=== PATIENT | female | born 1980 | race Asian ===

== ENCOUNTER 2018-07-18 22:25 | Inpatient (IN) | payer BC ==
[2018-07-18] MEDS ORDERED: ACETAMINOPHEN 1000 MG/100 ML VIAL (NON FORMULARY) IVPB ONE (22:41)
[2018-07-18] MEDS ORDERED: SODIUM CHLORIDE 0.9% 1000 ML INFUS.BAG IV ONE (22:41)
[2018-07-18] MEDS ORDERED: ACETAMINOPHEN INJECTION 100 ML IVPB ONE (22:57)
[2018-07-18 23:01] LABS: URINE APPEARANCE Clear; URINE BILIRUBIN Negative (NEGATIVE); URINE COLOR Yellow; URINE GLUCOSE (UA) Negative (NEGATIVE); URINE KETONE Negative (NEGATIVE); URINE NITRITE Negative (NEGATIVE); URINE PROTEIN Trace (NEGATIVE); URINE UROBILINOGEN 0.2 (0.2-1.0)
[2018-07-18 23:04] LABS: URINE LEUK ESTERASE 3+ (NEGATIVE)
[2018-07-18 23:06] LABS: HEMOGLOBIN 10.1 GM/dl (10.7-15.3); MCH 30.6 pg (25.7-33.7); MCHC 32.7 g/dl (32.0-36.0); MEAN CELL VOLUME 93.6 fl (80-96); MEAN PLT VOLUME 8.1 fl (7.5-11.1); PLATELET COUNT 321 K/MM3 (134-434); RBC 3.32 M/mm3 (3.60-5.2); RDW 13.1 % (11.6-15.6); WHITE BLOOD COUNT 21.9 K/mm3 (4.0-10.8)
[2018-07-18 23:21] LABS: ALBUMIN 2.6 g/dl (3.5-5.0); ALK PHOS 122 U/L (32-92); ANION GAP 10 MMOL/L (8-16); BILIRUBIN,TOTAL 0.5 mg/dl (0.2-1.0); BLOOD UREA NITROGEN 6 mg/dl (7-18); CALCIUM 8.2 mg/dl (8.4-10.2); CHLORIDE 103 mmol/L (98-107); CO2 18 mmol/L (22-28); CREATININE < 0.6 mg/dl (0.6-1.3); GLUCOSE,RANDOM 108 mg/dl (74-106); POTASSIUM 3.6 mmol/L (3.5-5.1); SGOT/AST 44 U/L (10-42); SGPT/ALT 24 U/L (10-40); SODIUM 131 mmol/L (136-145); TOT PROT 6.2 g/dl (6.4-8.3)
[2018-07-18 23:24] LABS: EPI CELLS FEW /HPF; URINE BACTERIA MODERATE /hpf (NEGATIVE); URINE WBC MANY (0-5)
[2018-07-18 23:29] LABS: ANISOCYTOSIS 1+; PLATELET ESTIMATE ADEQUATE
[2018-07-18] MEDS ORDERED: CEFTRIAXONE 1 GM in DEXTROSE 5%-WATER - 100 ML IVPB ONE (23:35)
[2018-07-18] MEDS ORDERED: cefTRIAXone SODIUM 1 GM VIAL ONE (23:39)
--- NOTE | 2018-07-18 23:52 | PDOC ---
History of Present Illness - General Chief Complaint: Urinary Problem Stated Complaint: KIDNEY INFECTION Time Seen by Provider: 07/18/18 22:37 - History of Present Illness Initial Comments: 07/18/18 23:45 38 years old past medical history 8 days headache Ni during delivery diagnosed with UTI status post Ni catheterization treated initially with Bactrim sensitivities from urgent care showed resistance and patient was changed to Macrobid initially was feeling better but today began developing severe right flank pain associated with fevers Tmax 102 and some chills. Pain is moderate to severe persistent concent does not wax and wane is located in on her right flank and right side of her abdomen. No nausea no vomiting patient tolerated fluids Past History - Past Medical History Allergies/Adverse Reactions: Allergies Allergy/AdvReac Type Severity Reaction Status Date / Time No Known Allergies Allergy Unverified 07/18/18 22:30 Home Medications: Ambulatory Orders Ibuprofen 600 mg PO QID PRN 07/18/18 Nitrofurantoin Macrocrystal [Macrodantin] 100 mg PO BID 07/18/18 COPD: No Other medical history: RECENT CHILDBIRTH/UTI - Suicide/Smoking/Psychosocial Hx Smoking History: Never smoked Review of Systems - Review of Systems Comments:: 07/18/18 23:45 ROS: A complete review of 10 out of 10 review of systems is taken and is negative apart from what is previously mentioned below and in the HPI. *Physical Exam - Vital Signs Last Vital Signs Temp Pulse Resp BP Pulse Ox 100.1 F H 115 H 16 104/69 98 07/18/18 22:32 07/18/18 22:32 07/18/18 22:32 07/18/18 22:32 07/18/18 22:32 - Physical Exam Comments: 07/18/18 23:45 Vitals: Triage Vital signs reviewed General Appearance: no acute distress, well nourished well developed, Head: Atraumatic, Neck: Supple;No Nucal rigidity Chest Wall: Nontender Cardiac: Tachycardic, no murmurs, no rubs, no gallops, Lungs: Clear to auscultation bilateral, good air movement bilaterally, Abdomen: Soft, non distended, normal bowel sounds, non tender to palpation moderate right CVA tenderness to palpation Extremities: Full range of motion to all extremities, no cyanosis, clubbing, or edema Skin: Warm and dry, no rashes or lesions, no rash, no petechiae Psych: normal mood, normal affect ED Treatment Course - LABORATORY CBC & Chemistry Diagram: 07/18/18 22:50 07/18/18 22:50 - ADDITIONAL ORDERS Additional order review: Laboratory Results 07/18/18 07/18/18 07/18/18 22:50 22:50 22:50 Sodium 131 L Potassium 3.6 Chloride 103 Carbon Dioxide 18 L Anion Gap 10 BUN 6 L Creatinine < 0.6 L Creat Clearance w eGFR > 60 Random Glucose 108 H Calcium 8.2 L Total Bilirubin 0.5 AST 44 H ALT 24 Alkaline Phosphatase 122 H Total Protein 6.2 L Albumin 2.6 L Urine Color Yellow Urine Appearance Clear Urine pH 6.0 Ur Specific [place] <= 1.005 Urine Protein Trace Urine Glucose (UA) Negative Urine Ketones Negative Urine Blood 2+ H Urine Nitrite Negative Urine Bilirubin Negative Urine Urobilinogen 0.2 Ur Leukocyte Esterase 3+ H Urine RBC 5-10 Urine WBC Many Ur Epithelial Cells Few Urine Bacteria Moderate Urine HCG, Qual Negative 07/18/18 22:50 RBC 3.32 L MCV 93.6 MCHC 32.7 RDW 13.1 MPV 8.1 Neutrophils % No Result Required. Lymphocytes % No Result Required. - RADIOLOGY Radiology Studies Ordered: Category Date Time Status ABDOMEN & PELVIS CT W/O CONTR [CT] Stat CT Scan 07/18/18 23:01 Ordered - Medications Given in the ED: ED Medications Discontinued Medications Generic Name Dose Route Start Last Admin Trade Name Freq PRN Reason Stop Dose Admin Acetaminophen 1,000 mg 07/18/18 22:41 07/18/18 22:57 Ofirmev Injection - IVPB 07/18/18 22:42 1,000 mg ONCE ONE Administration Sodium Chloride 1,000 ml 07/18/18 22:41 07/18/18 22:56 Normal Saline - IV 07/18/18 22:42 1,000 ml ONCE ONE Administration Medical Decision Making - Medical Decision Making 07/18/18 23:58 History examination consistent with pyelonephritis given flank pain CT ordered No obvious evidence of stone interpreted by me. Given fever and tachycardia white blood cell count of 21 we'll admit to hospital for IV antibiotics and further management given the patient has failed outpatient therapy Findings discussed with patient. *DC/Admit/Observation/Transfer Diagnosis at time of Disposition: Pyelonephritis - Discharge Dispostion Condition at time of disposition: Stable Decision to Admit order: Yes - Referrals - Patient Instructions - Post Discharge Activity
[2018-07-18 23:58] LABS: VENOUS PC02 30.7 mmHg (38-52); VENOUS PH 7.41 (7.32-7.42); VENOUS PO2 45.4 mmHg (28-48)
[2018-07-19 00:47] VITALS: BMI 23.8
--- NOTE | 2018-07-19 00:55 | HP ---
CHIEF COMPLAINT: Right flank pain and fever PCP: none HISTORY OF PRESENT ILLNESS: This is a 38 year old female who is 8 days who presented to the ED with fever and right flank pain x 1 day. Pt is 8 days . She had a allison catheter placed during delivery. She was diagnosed with UTI by [facility] in [facility] and started on bactrim. She initially felt better, but she received a TC that it was resistant to bactrim and was prescribed macrobid. ER course was notable for: (1) WBC 21.9, lactic acid 2.7, temp 100.1 (2) sodium 131 (3) u/a c/w UTI Recent Travel: pt denies PAST MEDICAL HISTORY: hypothyroid, no longer on meds; prolactinoma tx with cabergoline PAST SURGICAL HISTORY: fibroidectomy Social History: Smoking: pt denies Alcohol: pt denies Drugs: pt denies Family History: mother, father and brother all alive and well with no PMH Allergies No Known Allergies Allergy (Unverified 07/18/18 22:30) HOME MEDICATIONS: 3 Medication Instructions Recorded Ibuprofen 600 mg PO QID PRN 07/18/18 Nitrofurantoin Macrocrystal 100 mg PO BID 07/18/18 [Macrodantin] REVIEW OF SYSTEMS CONSTITUTIONAL: Present: fever, chills Absent: diaphoresis, generalized weakness, malaise, loss of appetite, weight change HEENT: Absent: rhinorrhea, nasal congestion, throat pain, throat swelling, difficulty swallowing, mouth swelling, ear pain, eye pain, visual changes CARDIOVASCULAR: Absent: chest pain, syncope, palpitations, irregular heart rate, lightheadedness , peripheral edema RESPIRATORY: Absent: cough, shortness of breath, dyspnea with exertion, orthopnea, wheezing, stridor, hemoptysis GASTROINTESTINAL: Absent: abdominal pain, abdominal distension, nausea, vomiting, diarrhea, constipation, melena, hematochezia GENITOURINARY: Present: flank pain Absent: dysuria, frequency, urgency, hesitancy, hematuria, genital pain MUSCULOSKELETAL: Absent: myalgia, arthralgia, joint swelling, back pain, neck pain SKIN: Absent: rash, itching, pallor HEMATOLOGIC/IMMUNOLOGIC: Absent: easy bleeding, easy bruising, lymphadenopathy, frequent infections ENDOCRINE: Absent: unexplained weight gain, unexplained weight loss, heat intolerance, cold intolerance NEUROLOGIC: Absent: headache, focal weakness or paresthesias, dizziness, unsteady gait, seizure, mental status changes, bladder or bowel incontinence PSYCHIATRIC: Absent: anxiety, depression, suicidal or homicidal ideation, hallucinations. PHYSICAL EXAMINATION Vital Signs - 24 hr 3 07/18/18 07/19/18 07/19/18 22:32 00:16 00:17 Temperature 100.1 F H 98.9 F 98.4 F Pulse Rate 115 H 113 H Pulse Rate [ 98 H Radial] Respiratory 16 16 19 Rate Blood Pressure 104/69 102/59 L Blood Pressure 98/56 L [Arm] O2 Sat by Pulse 98 98 98 Oximetry (%) GENERAL: Awake, alert, and fully oriented, in no acute distress. HEAD: Normal with no signs of trauma. EYES: Pupils equal, round and reactive to light, extraocular movements intact, sclera anicteric, conjunctiva clear. No lid lag. EARS, NOSE, THROAT: Ears normal, nares patent, oropharynx clear without exudates. Moist mucous membranes. NECK: Normal range of motion, supple without lymphadenopathy, JVD, or masses. LUNGS: Breath sounds equal, clear to auscultation bilaterally. No wheezes, and no crackles. No accessory muscle use. HEART: Regular rate and rhythm, normal S1 and S2 without murmur, rub or gallop. ABDOMEN: Soft, nontender, not distended, normoactive bowel sounds, no guarding, no rebound, no masses. No hepatomegaly or splenomegaly. MUSCULOSKELETAL: Normal range of motion at all joints. No bony deformities or tenderness. + R CVA tenderness. UPPER EXTREMITIES: 2+ pulses, warm, well-perfused. No cyanosis. No clubbing. No peripheral edema. LOWER EXTREMITIES: 2+ pulses, warm, well-perfused. No calf tenderness. No peripheral edema. NEUROLOGICAL: Cranial nerves II-XII intact. Normal speech. Normal gait. PSYCHIATRIC: Cooperative. Good eye contact. Appropriate mood and affect. SKIN: Warm, dry, normal turgor, no rashes or lesions noted, normal capillary refill. Laboratory Results - last 24 hr 3 07/18/18 07/18/18 07/18/18 22:50 22:50 22:50 WBC 21.9 H RBC 3.32 L Hgb 10.1 L Hct 31.0 L MCV 93.6 MCH 30.6 MCHC 32.7 RDW 13.1 Plt Count 321 MPV 8.1 Absolute Neuts (auto) 19.6 Neutrophils % No Result Required. Neutrophils % (Manual) 85.0 H Band Neutrophils % 7.0 Lymphocytes % No Result Required. Lymphocytes % (Manual) 4.0 L Monocytes % (Manual) 4 Platelet Estimate Adequate Platelet Comment Few large plts. Anisocytosis 1+ [place] Cells 2+ VBG pH 7.41 POC VBG pCO2 30.7 L POC VBG pO2 45.4 Mixed VBG HCO3 19.1 Sodium Potassium Chloride Carbon Dioxide Anion Gap BUN Creatinine Creat Clearance w eGFR Random Glucose Lactic Acid Calcium Total Bilirubin AST ALT Alkaline Phosphatase Total Protein Albumin Beta HCG, Quant Urine Color Yellow Urine Appearance Clear Urine pH 6.0 Ur Specific [place] <= 1.005 Urine Protein Trace Urine Glucose (UA) Negative Urine Ketones Negative Urine Blood 2+ H Urine Nitrite Negative Urine Bilirubin Negative Urine Urobilinogen 0.2 Ur Leukocyte Esterase 3+ H Urine RBC 5-10 Urine WBC Many Ur Epithelial Cells Few Urine Bacteria Moderate Urine HCG, Qual 3 07/18/18 07/18/18 07/18/18 22:50 22:50 22:50 WBC RBC Hgb Hct MCV MCH MCHC RDW Plt Count MPV Absolute Neuts (auto) Neutrophils % Neutrophils % (Manual) Band Neutrophils % Lymphocytes % Lymphocytes % (Manual) Monocytes % (Manual) Platelet Estimate Platelet Comment Anisocytosis [place] Cells VBG pH POC VBG pCO2 POC VBG pO2 Mixed VBG HCO3 Sodium 131 L Potassium 3.6 Chloride 103 Carbon Dioxide 18 L Anion Gap 10 BUN 6 L Creatinine < 0.6 L Creat Clearance w eGFR > 60 Random Glucose 108 H Lactic Acid 2.7 H* Calcium 8.2 L Total Bilirubin 0.5 AST 44 H ALT 24 Alkaline Phosphatase 122 H Total Protein 6.2 L Albumin 2.6 L Beta HCG, Quant 89.9 Urine Color Urine Appearance Urine pH Ur Specific [place] Urine Protein Urine Glucose (UA) Urine Ketones Urine Blood Urine Nitrite Urine Bilirubin Urine Urobilinogen Ur Leukocyte Esterase Urine RBC Urine WBC Ur Epithelial Cells Urine Bacteria Urine HCG, Qual Negative Radiology Reports CT abd/pelvis: report pending ASSESSMENT/PLAN: 38yF with PMH hypothyroid and prolactinoma presented to the ED with fever and flank pain. sepsis secondary to Pyelonephritis - tx with ceftriaxone 1 g in ED, - failed outpatient treatment, admit for IV antibiotics - add vanco 1g as patient recently had FC placement during delivery - ID consult anemia - likely secondary to blood loss r/t recent vaginal delivery - start iron BID with meals DVT PPX - heparin 5000u BID FEN - NS @ 100cc/hr - BMP in AM - Regular diet as tolerated Dispo: pt currently requires inpatient management of her emergent condition. Visit type - Emergency Visit Emergency Visit: Yes ED Registration Date: 07/18/18 Care time: The patient presented to the Emergency Department on the above date and was hospitalized for further evaluation of their emergent condition. - New Patient This patient is new to me today: Yes Date on this admission: 07/19/18 - Critical Care Critical Care patient: No Hospitalist Screening - Colonoscopy Questionnaire Colonoscopy Questionnaire: Colonoscopy Questionnaire - Patient: 50 - 75 years old and never had a screening colonoscopy: No History of colon or rectal polyps, or CA: No History of IBD, Crohn's disease or UC: No History of abdominal radiation therapy as a child: No - Relative: 1 with colon or rectal CA, or polyps at age 60 or younger: No Colon or rectal CA diagnosed at age 45 or younger: No Multiple relatives with colon or rectal CA: No - Outcome: Screening Result: Negative Screen
[2018-07-19] MEDS ORDERED: SODIUM CHLORIDE 1,000 ML IV SCH (01:00)
[2018-07-19] MEDS ORDERED: VANCOMYCIN 1 GRAM (PRE-DOCKED) 1,000 MG/250 ML BAG IVPB ONE (01:25)
--- NOTE | 2018-07-19 07:59 | PN ---
Physical Exam: SUBJECTIVE: Patient seen and examined, reports feelings right flank pain, denies any tactile fevers. OBJECTIVE: Patient is a 38 y/o female with a past medical history of hypothyroid (no meds), prolactinoma (tx with cabergoline, patient is 8 days post NVD., patient was admitted for pyelonephritis Vital Signs Period Temp Pulse Resp BP Sys/Dillon Pulse Ox Last 24 Hr 98.3 F-100.1 F 91-115 16-19 90-104/51-69 98-100 low 80s intermittently over GENERAL: The patient is awake, alert, and fully oriented, in no acute distress. HEAD: Normal with no signs of trauma. EYES: PERRL, extraocular movements intact, sclera anicteric, conjunctiva clear. No ptosis. ENT: Ears normal, nares patent, oropharynx clear without exudates, moist mucous membranes. NECK: Trachea midline, full range of motion, supple. LUNGS: Breath sounds equal, clear to auscultation bilaterally, no wheezes, no crackles, no accessory muscle use. HEART: Regular rate and rhythm, S1, S2 without murmur, rub or gallop. ABDOMEN: Soft, right CVA tendernessnontender, nondistended, normoactive bowel sounds, no guarding, no rebound, no hepatosplenomegaly, no masses. EXTREMITIES: 2+ pulses, warm, well-perfused, no edema. NEUROLOGICAL: Cranial nerves II through XII grossly intact. Normal speech, gait not observed. PSYCH: Normal mood, normal affect. SKIN: Warm, dry, normal turgor, no rashes or lesions noted Laboratory Results - last 24 hr CBC WBC 23.9 K/mm3 (4.0-10.8) H 07/19/18 08:30 RBC 3.16 M/mm3 (3.60-5.2) L 07/19/18 08:30 Hgb 9.6 GM/dl (10.7-15.3) L 07/19/18 08:30 Hct 29.9 % (32.4-45.2) L 07/19/18 08:30 MCV 94.5 fl (80-96) 07/19/18 08:30 MCH 30.4 pg (25.7-33.7) 07/19/18 08:30 MCHC 32.2 g/dl (32.0-36.0) 07/19/18 08:30 RDW 13.4 % (11.6-15.6) 07/19/18 08:30 Plt Count 294 K/MM3 (134-434) 07/19/18 08:30 MPV 7.6 fl (7.5-11.1) 07/19/18 08:30 Absolute Neuts (auto) 21.8 K/mm3 07/19/18 08:30 Neutrophils % 90.8 % (42.8-82.8) H 07/19/18 08:30 Neutrophils % (Manual) 85.0 % (42.8-82.8) H 07/18/18 22:50 Band Neutrophils % 7.0 % (0-10) 07/18/18 22:50 Lymphocytes % 4.3 % (8-40) L 07/19/18 08:30 Lymphocytes % (Manual) 4.0 % (8-40) L 07/18/18 22:50 Monocytes % 4.7 % (3.8-10.2) 07/19/18 08:30 Monocytes % (Manual) 4 % (3.8-10.2) 07/18/18 22:50 Eosinophils % 0.1 % (0-4.5) 07/19/18 08:30 Basophils % 0.1 % (0-2.0) 07/19/18 08:30 Platelet Estimate Adequate 07/18/18 22:50 Platelet Comment Few large plts. 07/18/18 22:50 Anisocytosis 1+ 07/18/18 22:50 Vidal Cells 2+ 07/18/18 22:50 CMP Sodium 135 mmol/L (136-145) L 07/19/18 08:30 Potassium 3.2 mmol/L (3.5-5.1) L 07/19/18 08:30 Chloride 110 mmol/L (98-107) H 07/19/18 08:30 Carbon Dioxide 20 mmol/L (22-28) L 07/19/18 08:30 Anion Gap 5 MMOL/L (8-16) L 07/19/18 08:30 BUN 5 mg/dl (7-18) L 07/19/18 08:30 Creatinine < 0.6 mg/dl (0.6-1.3) L 07/19/18 08:30 Creat Clearance w eGFR > 60 (>60) 07/19/18 08:30 Random Glucose 93 mg/dl (74-106) 07/19/18 08:30 Lactic Acid 0.7 mmol/L (0.4-2.0) 07/19/18 00:55 Calcium 7.7 mg/dl (8.4-10.2) L 07/19/18 08:30 Phosphorus 2.6 mg/dl (2.5-4.6) 07/19/18 08:30 Magnesium 1.8 mg/dL (1.8-2.4) 07/19/18 08:30 Total Bilirubin 0.5 mg/dl (0.2-1.0) 07/18/18 22:50 AST 44 U/L (10-42) H 07/18/18 22:50 ALT 24 U/L (10-40) 07/18/18 22:50 Alkaline Phosphatase 122 U/L (32-92) H 07/18/18 22:50 Total Protein 6.2 g/dl (6.4-8.3) L 07/18/18 22:50 Albumin 2.6 g/dl (3.5-5.0) L 07/18/18 22:50 Beta HCG, Quant 89.9 mIU/ml 07/18/18 22:50 Active Medications Generic Name Dose Route Start Last Admin Trade Name Freq PRN Reason Stop Dose Admin Ferrous Sulfate 325 mg 07/19/18 08:00 Feosol - PO BIDWM [facility] Heparin Sodium (Porcine) 5,000 unit 07/19/18 10:00 Heparin - SQ BID [facility] Sodium Chloride 1,000 mls @ 100 mls/hr 07/19/18 01:00 07/19/18 01:29 Normal Saline - IV 100 mls/hr ASDIR [facility] Administration ASSESSMENT/PLAN: 1) sepsis secondary to Pyelonephritis - microbiology report btained from [facility] urine culture completed on 2017 positive Escherichia coligreater than 100,000 sensitive to Rocephin copy of report, placed in paper chart - will continue with Ceftriaxone 2 g IV daily - Trend WBC and fever curve - dr. Paula infectious disease physician consulted and following 2) hematology normocytic anemia - Repeat hemoglobin this a.m. 9.6, patient is status post vaginal delivery and hemoglobin likely secondary to dilution receiving IV fluids, close monitoring. - continue iron supplementatio repeat hemoglobin in a.m. DVT PPX - heparin 5000u BID FEN - NS w/20meq kci @ 100cc/hr - BMP in AM - Regular diet as tolerated Dispo: pt currently requires inpatient management of her emergent condition. Visit type - Emergency Visit Emergency Visit: Yes ED Registration Date: 07/18/18 Care time: The patient presented to the Emergency Department on the above date and was hospitalized for further evaluation of their emergent condition. - New Patient This patient is new to me today: Yes Date on this admission: 07/19/18 - Critical Care Critical Care patient: No - Discharge Referral Referred to [facility] Med P.C.: No
[2018-07-19] MEDS ORDERED: ACETAMINOPHEN 1000 MG/100 ML VIAL (NON FORMULARY) IVPB ONE (08:30)
[2018-07-19 08:45] LABS: BASO % 0.1 % (0-2.0); EOS % 0.1 % (0-4.5); HEMATOCRIT 29.9 % (32.4-45.2); HEMOGLOBIN 9.6 GM/dl (10.7-15.3); LYMPH % 4.3 % (8-40); MCH 30.4 pg (25.7-33.7); MCHC 32.2 g/dl (32.0-36.0); MEAN CELL VOLUME 94.5 fl (80-96); MEAN PLT VOLUME 7.6 fl (7.5-11.1); MONO % 4.7 % (3.8-10.2); NEUT % 90.8 % (42.8-82.8); PLATELET COUNT 294 K/MM3 (134-434); RBC 3.16 M/mm3 (3.60-5.2); RDW 13.4 % (11.6-15.6); WHITE BLOOD COUNT 23.9 K/mm3 (4.0-10.8)
[2018-07-19] MEDS: FERROUS SO4 325 MG TABLET (FP) PO SCH ×2 (08:52→17:30)
[2018-07-19 09:02] LABS: ANION GAP 5 MMOL/L (8-16); BLOOD UREA NITROGEN 5 mg/dl (7-18); CALCIUM 7.7 mg/dl (8.4-10.2); CHLORIDE 110 mmol/L (98-107); CO2 20 mmol/L (22-28); GLUCOSE,RANDOM 93 mg/dl (74-106); MAGNESIUM 1.8 mg/dL (1.8-2.4); PHOSPHOROUS 2.6 mg/dl (2.5-4.6); POTASSIUM 3.2 mmol/L (3.5-5.1); SODIUM 135 mmol/L (136-145)
[2018-07-19 09:04] LABS: CREATININE < 0.6 mg/dl (0.6-1.3)
[2018-07-19] MEDS: HEPARIN NA (PORCINE) 5,000 UNITS/ML 1ML VIAL SQ SCH ×2 (09:27→21:49)
[2018-07-19] MEDS: CEFTRIAXONE 2 GM/100 ML BAG IVPB SCH (09:27)
[2018-07-19] MEDS: LACTOBACILLUS ACIDOPHILUS 1 TABLET PO SCH (09:27)
[2018-07-19] MEDS: SENNOSIDES 8.6MG TABLET (FP) PO SCH ×2 (09:27→21:49)
[2018-07-19] MEDS ORDERED: MAGNESIUM SULFATE 2 GM in SODIUM CHLORIDE 100 ML IVPB ONE (10:16)
[2018-07-19] MEDS ORDERED: MAGNESIUM SULFATE IN WATER 2 GM/50 ML IVPB IVPB ONE (10:30)
[2018-07-19] MEDS ORDERED: POTASSIUM CHLORIDE TABS 20 MEQ TABLET.ER (FP) PO ONE (10:30)
[2018-07-19] MEDS ORDERED: SODIUM CHLORIDE 0.9%/KCL 20 MEQ/1,000 ML INFUS.BAG IV SCH (10:45)
--- NOTE | 2018-07-19 11:01 | PN ---
Progress Note (short form) - Note Progress Note: ID Consult dictated R pyelonephritis E coli E Coli UTI R/O sepsis secondary to source Await cultures Continue ceftriaxone, IV fluids
--- NOTE | 2018-07-19 13:05 | CONS ---
DATE OF CONSULTATION: DATE OF DICTATION: 07/19/2018 INFECTIOUS DISEASE CONSULTATION The patient is a 38-year-old female who is 8 weeks' who is evaluated for pyelonephritis. The patient presented to an urgent care center with a 1-day history of right flank pain, fever, chills. According to the note, she had a temperature as high as 102. She was evaluated in the urgent care center and was prescribed Bactrim for urinary tract infection. The urine culture subsequently grew an E. coli resistant to Bactrim. She was switched to Macrobid. She presented to the hospital after developing worsening right flank pain, high-grade fever, and chills. She was found to have right CVA tenderness, fever, and markedly elevated white blood cell count and lactic acidosis. She was empirically treated with ceftriaxone. At the present time, she continues to complain of right flank and right-sided abdominal pain. She denies any dysuria or hematuria. The patient reports that the baby has been doing fine. PAST MEDICAL HISTORY: Positive for hypothyroidism, history of prolactinoma, hypothyroidism. ALLERGIES: No known allergies. SOCIAL HISTORY: Lives at home with her significant other. SOCIAL HISTORY: Nonsmoker, nondrinker. SYSTEM REVIEW: Neurologic: No loss of consciousness, seizure activity, focal weakness. Cardiac: Negative chest pain or palpitations. Respiratory: Negative cough or sputum production. Gastrointestinal: Negative vomiting or diarrhea. Genitourinary: As per HPI. LABORATORY DATA: White count 23.9, hematocrit 29.9, platelet count 294. Creatinine 0.6. Lactic acid 2.7. Urinalysis many white cells, total bilirubin 0.5, alkaline phosphatase 122, AST 44. A CAT scan of the abdomen and pelvis was performed. The official reading is pending. PHYSICAL EXAMINATION: General: She is awake and alert, in moderate distress secondary to right flank pain. Vital Signs: Temperature 99.4, T-max 100.1, blood pressure 99/71, pulse 107 regular, respirations 18 per minute. Eyes: Sclerae anicteric. Heart: Tachycardic, S1, S2. No murmur. Lungs: Clear. Abdomen: Soft. There is right-sided abdominal tenderness and right flank tenderness. Extremities: Negative for edema. Negative Irma sign. IMPRESSION: 1. Acute right pyelonephritis. 2. Escherichia coli urinary tract infection rule out sepsis secondary to genitourinary source. PLAN: Await cultures. Continue ceftriaxone 2 IV piggyback every 24 hours, IV fluids, and analgesics. The report from [facility] reveals urine isolate E. coli sensitive to ceftriaxone. Will follow. Thanks for the kind referral. WILMER WYMAN M.D. [id number]
[2018-07-19] MEDS: ACETAMINOPHEN 325 MG TABLET (FP) PO PRN (14:30)
[2018-07-19] MEDS ORDERED: IBUPROFEN 600 MG TABLET (FP) PO ONE (16:45)
--- NOTE | 2018-07-20 07:49 | PN ---
Physical Exam: SUBJECTIVE: Patient seen and examined, patient is ambulatory throughout nursing station, reports feeling well, reports an improvement in lower back pain, tmax 102.9, patient is pumping breast milk but is dumping all expressed milk OBJECTIVE: Patient is a 38 y/o female with a past medical history of hypothyroid (no meds), prolactinoma (tx with cabergoline, patient is 8 days post NVD., patient was admitted for Sepsis, E coli bacteremia and pyelonephritis Vital Signs Period Temp Pulse Resp BP Sys/Dillon Pulse Ox Last 24 Hr 98.1 F-102.9 F 83-107 18-18 99-116/64-74 99-100 GENERAL: The patient is awake, alert, and fully oriented, in no acute distress. HEAD: Normal with no signs of trauma. EYES: PERRL, extraocular movements intact, sclera anicteric, conjunctiva clear. No ptosis. ENT: Ears normal, nares patent, oropharynx clear without exudates, moist mucous membranes. NECK: Trachea midline, full range of motion, supple. LUNGS: Breath sounds equal, clear to auscultation bilaterally, no wheezes, no crackles, no accessory muscle use. HEART: Regular rate and rhythm, S1, S2 without murmur, rub or gallop. ABDOMEN: Soft, + suprapubic tenderness and right cva tenderness, nondistended, normoactive bowel sounds, no guarding, no rebound, no hepatosplenomegaly, no masses. EXTREMITIES: 2+ pulses, warm, well-perfused, no edema. NEUROLOGICAL: Cranial nerves II through XII grossly intact. Normal speech, gait not observed. PSYCH: Normal mood, normal affect. SKIN: Warm, dry, normal turgor, no rashes or lesions noted Laboratory Results - last 24 hr CBC WBC 17.2 K/mm3 (4.0-10.8) H 07/20/18 07:10 RBC 2.90 M/mm3 (3.60-5.2) L 07/20/18 07:10 Hgb 8.8 GM/dl (10.7-15.3) L 07/20/18 07:10 Hct 27.5 % (32.4-45.2) L 07/20/18 07:10 MCV 94.7 fl (80-96) 07/20/18 07:10 MCH 30.3 pg (25.7-33.7) 07/20/18 07:10 MCHC 32.0 g/dl (32.0-36.0) 07/20/18 07:10 RDW 13.4 % (11.6-15.6) 07/20/18 07:10 Plt Count 264 K/MM3 (134-434) 07/20/18 07:10 MPV 8.2 fl (7.5-11.1) 07/20/18 07:10 Absolute Neuts (auto) 14.7 K/mm3 07/20/18 07:10 Neutrophils % 85.4 % (42.8-82.8) H 07/20/18 07:10 Neutrophils % (Manual) 85.0 % (42.8-82.8) H 07/18/18 22:50 Band Neutrophils % 7.0 % (0-10) 07/18/18 22:50 Lymphocytes % 9.3 % (8-40) 07/20/18 07:10 Lymphocytes % (Manual) 4.0 % (8-40) L 07/18/18 22:50 Monocytes % 4.8 % (3.8-10.2) 07/20/18 07:10 Monocytes % (Manual) 4 % (3.8-10.2) 07/18/18 22:50 Eosinophils % 0.2 % (0-4.5) 07/20/18 07:10 Basophils % 0.3 % (0-2.0) 07/20/18 07:10 Platelet Estimate Adequate 07/18/18 22:50 Platelet Comment Few large plts. 07/18/18 22:50 Anisocytosis 1+ 07/18/18 22:50 Vidal Cells 2+ 07/18/18 22:50 CMP Sodium 136 mmol/L (136-145) 07/20/18 07:10 Potassium 4.1 mmol/L (3.5-5.1) D 07/20/18 07:10 Chloride 111 mmol/L (98-107) H 07/20/18 07:10 Carbon Dioxide 19 mmol/L (22-28) L 07/20/18 07:10 Anion Gap 6 MMOL/L (8-16) L 07/20/18 07:10 BUN < 5 mg/dl (7-18) L 07/20/18 07:10 Creatinine < 0.6 mg/dl (0.6-1.3) L 07/20/18 07:10 Creat Clearance w eGFR > 60 (>60) 07/20/18 07:10 Random Glucose 90 mg/dl (74-106) 07/20/18 07:10 Lactic Acid 0.7 mmol/L (0.4-2.0) 07/19/18 00:55 Calcium 7.7 mg/dl (8.4-10.2) L 07/20/18 07:10 Phosphorus 2.1 mg/dl (2.5-4.6) L 07/20/18 07:10 Magnesium 1.8 mg/dL (1.8-2.4) 07/20/18 07:10 Total Bilirubin 0.5 mg/dl (0.2-1.0) 07/18/18 22:50 AST 44 U/L (10-42) H 07/18/18 22:50 ALT 24 U/L (10-40) 07/18/18 22:50 Alkaline Phosphatase 122 U/L (32-92) H 07/18/18 22:50 Total Protein 6.2 g/dl (6.4-8.3) L 07/18/18 22:50 Albumin 2.6 g/dl (3.5-5.0) L 07/18/18 22:50 Beta HCG, Quant 89.9 mIU/ml 07/18/18 22:50 Active Medications Generic Name Dose Route Start Last Admin Trade Name Freq PRN Reason Stop Dose Admin Acetaminophen 650 mg 07/19/18 08:07 07/19/18 14:30 Tylenol - PO 650 mg Q4H PRN Administration FEVER Ferrous Sulfate 325 mg 07/19/18 08:00 07/19/18 08:52 Feosol - PO 325 mg BIDWM MORE Administration Heparin Sodium (Porcine) 5,000 unit 07/19/18 10:00 07/19/18 21:49 Heparin - SQ 5,000 unit BID MORE Administration Ceftriaxone Sodium 2 gm in 100 mls @ 200 mls/hr 07/19/18 10:00 07/19/18 09:27 Rocephin 2gm Ivpb (Pre-Docked) IVPB 200 mls/hr DAILY MORE Administration Protocol Potassium Chloride/Sodium Chloride 20 meq in 1,000 mls @ 100 mls/hr 07/19/18 10:45 07/19/18 17:01 Ns+20 Meq Kcl - IV 100 mls/hr ASDIR MORE Administration Lactobacillus Acidophilus 1 tab 07/19/18 10:00 07/19/18 09:27 Bacid - PO 1 tab DAILY MORE Administration Senna 1 tab 07/19/18 10:00 07/19/18 21:49 Senna - PO 1 tab BID MORE Administration Microbiology 07/18/18 22:50 Urine - Urine Clean Catch Urine Culture - Preliminary Lactose Fermenting Neg Bacilli 07/18/18 22:50 Blood - Peripheral Venous Blood Culture - Preliminary Lactose Fermenting Neg Bacilli 07/18/18 22:50 Blood - Peripheral Venous Blood Culture - Preliminary Lactose Fermenting Neg Bacilli IMAGING CT of abd/pelvis: no evidence of urinary tract calculi or obstructive uropathy mild right perinephric stranding, fibroid uterus ASSESSMENT/PLAN: 1) ID sepsis secondary to Pyelonephritis ecoli bacteremia - Urine and blood cultures preliminary positive for lactose fermenting negative bacilli, will continue Rocephin 2 g IV daily, repeat blood cultures ordered - MAXIMUM TEMPERATURE 102.9 yesterday, trending downward, WBC trending downward. Close monitoring - dr. Paula infectious disease physician consulted and following 2) hematology normocytic anemia - Repeat hemoglobin this a.m. 8.8, patient is status post vaginal delivery and hemoglobin likely secondary to dilution, d/c ivf - continue iron supplementatio repeat hemoglobin in a.m. DVT PPX - heparin 5000u BID FEN - BMP in AM - Regular diet as tolerated Dispo: pt currently requires inpatient management of her emergent condition. Visit type - Emergency Visit Emergency Visit: Yes ED Registration Date: 07/18/18 Care time: The patient presented to the Emergency Department on the above date and was hospitalized for further evaluation of their emergent condition. - New Patient This patient is new to me today: No - Critical Care Critical Care patient: No - Discharge Referral Referred to [facility] Med P.C.: No
[2018-07-20 07:50] LABS: BASO % 0.3 % (0-2.0); EOS % 0.2 % (0-4.5); HEMATOCRIT 27.5 % (32.4-45.2); HEMOGLOBIN 8.8 GM/dl (10.7-15.3); LYMPH % 9.3 % (8-40); MCH 30.3 pg (25.7-33.7); MEAN CELL VOLUME 94.7 fl (80-96); MEAN PLT VOLUME 8.2 fl (7.5-11.1); MONO % 4.8 % (3.8-10.2); NEUT % 85.4 % (42.8-82.8); PLATELET COUNT 264 K/MM3 (134-434); RDW 13.4 % (11.6-15.6); WHITE BLOOD COUNT 17.2 K/mm3 (4.0-10.8)
[2018-07-20 08:15] LABS: ANION GAP 6 MMOL/L (8-16); CALCIUM 7.7 mg/dl (8.4-10.2); CHLORIDE 111 mmol/L (98-107); CO2 19 mmol/L (22-28); GLUCOSE,RANDOM 90 mg/dl (74-106); MAGNESIUM 1.8 mg/dL (1.8-2.4); PHOSPHOROUS 2.1 mg/dl (2.5-4.6); POTASSIUM 4.1 mmol/L (3.5-5.1); SODIUM 136 mmol/L (136-145)
[2018-07-20 08:21] LABS: BLOOD UREA NITROGEN < 5 mg/dl (7-18); CREATININE < 0.6 mg/dl (0.6-1.3)
[2018-07-20] MEDS: FERROUS SO4 325 MG TABLET (FP) PO SCH ×2 (09:00→17:45)
[2018-07-20] MEDS: SENNOSIDES 8.6MG TABLET (FP) PO SCH ×2 (09:28→21:08)
[2018-07-20] MEDS: HEPARIN NA (PORCINE) 5,000 UNITS/ML 1ML VIAL SQ SCH ×2 (09:28→21:09)
[2018-07-20] MEDS: LACTOBACILLUS ACIDOPHILUS 1 TABLET PO SCH (09:28)
[2018-07-20] MEDS: CEFTRIAXONE 2 GM/100 ML BAG IVPB SCH (09:28)
[2018-07-20] MEDS: ACETAMINOPHEN 325 MG TABLET (FP) PO PRN (09:29)
--- NOTE | 2018-07-20 10:25 | PN ---
Progress Note, Physician History of Present Illness: Feeling better No c/o R flank pain No dysuria/ hematuria Febrile to 102.9 past 24hr Blood, urine c/s LF - Current Medication List Current Medications: Active Medications Acetaminophen (Tylenol -) 650 mg PO Q4H PRN PRN Reason: FEVER Last Admin: 07/20/18 09:29 Dose: 650 mg Ferrous Sulfate (Feosol -) 325 mg PO BIDWM [facility] Last Admin: 07/20/18 09:00 Dose: 325 mg Heparin Sodium (Porcine) (Heparin -) 5,000 unit SQ BID [facility] Last Admin: 07/20/18 09:28 Dose: Not Given Ceftriaxone Sodium (Rocephin 2gm Ivpb (Pre-Docked)) 2 gm in 100 mls @ 200 mls/ hr IVPB DAILY [facility]; Protocol Last Admin: 07/20/18 09:28 Dose: 200 mls/hr Potassium Chloride/Sodium Chloride (Ns+20 Meq Kcl -) 20 meq in 1,000 mls @ 100 mls/hr IV ASDIR [facility] Last Admin: 07/19/18 17:01 Dose: 100 mls/hr Lactobacillus Acidophilus (Bacid -) 1 tab PO DAILY MORE Last Admin: 07/20/18 09:28 Dose: 1 tab Senna (Senna -) 1 tab PO BID MORE Last Admin: 07/20/18 09:28 Dose: 1 tab - Objective Vital Signs: Vital Signs Temperature 99.8 F H 07/20/18 06:00 Pulse Rate 96 H 07/20/18 06:00 Respiratory Rate 18 07/20/18 06:00 Blood Pressure 116/74 07/20/18 06:00 O2 Sat by Pulse Oximetry (%) 99 07/20/18 07:52 Constitutional: Yes: No Distress Eyes: Yes: Conjunctiva Clear Cardiovascular: Yes: Regular Rate and Rhythm, S1, S2 Respiratory: Yes: CTA Bilaterally Gastrointestinal: Yes: Normal Bowel Sounds, Soft. No: Tenderness Genitourinary: No: CVA Tenderness - Right Edema: No Labs: CBC, BMP 07/20/18 07:10 07/20/18 07:10 Assessment/Plan Acute R pyelonephritis Gram Negative Bacteremia/ sepsis secondary to Await cultures Continue ceftriaxone
[2018-07-20] MEDS ORDERED: MAGNESIUM SULF 50% (8.12 MEQ/2 ML-1 GM VIAL) IVPB ONE (10:50)
[2018-07-20] MEDS ORDERED: MAGNESIUM 1GM/D5W - 1 GM/100 ML IVPB IVPB ONE (11:00)
[2018-07-20] MEDS ORDERED: KETOROLAC TROMETHAMINE 30 MG/1 ML VIAL IVPUSH ONE (11:15)
[2018-07-20] MEDS: NAPH,MB-DB/K PH,MBDB POWDER PACKET PO SCH ×2 (11:30→21:09)
--- NOTE | 2018-07-20 15:46 | ECHO ---
Name: PANFILO LOPEZ Exam:Adult Echocardiogram Study Date: 07/20/2018 01:56 PM Age: 38 yrs Reason For Study: ECOLI BACTEREMIA Height: 60 in Weight: 121 lb BSA: 1.5 m2 MMode/2D Measurements & Calculations IVSd: 0.90 cm Ao root diam: 2.5 cm LVIDd: 4.7 cm LA dimension: 3.3 cm LVIDs: 2.6 cm LVPWd: 0.82 cm EDV(Teich): 102.5 ml ESV(Teich): 25.4 ml Doppler Measurements & Calculations MV E max amaury: 111.2 cm/sec MV A max amaury: 78.6 cm/sec MV dec slope: 953.7 cm/sec2 MV E/A: 1.4 MR max amaury: 180.6 cm/sec TR max amaury: 159.6 cm/sec MR max P.0 mmHg TR max P.3 mmHg PA V2 max: 152.0 cm/sec PI end-d amaury: 126.9 cm/sec PA max P.2 mmHg Procedure A complete two-dimensional transthoracic echocardiogram was performed (2D, M-mode, Doppler and color flow Doppler). The patient was in normal sinus rhythm during the exam. Left Ventricle The left ventricular size, thickness and function are normal. Ejection Fraction = 55%. The transmitra l spectral Doppler flow pattern is normal for age. Right Ventricle The right ventricle is normal in size and function. Atria Normal left and right atrial size and function. Mitral Valve The mitral valve is grossly normal. There is trace mitral regurgitation. Tricuspid Valve The tricuspid valve is not well visualized, but is grossly normal. There was insufficient TR detected to calculate RV systolic pressure. Aortic Valve The aortic valve is normal in structure and function. No vegetations noted but this does not rule out endocarditis. No hemodynamically significant valvular aortic stenosis. Pulmonic Valve The pulmonic valve is not well visualized. Great Vessels The aortic root is normal size. Pericardium/Pleura There is no pericardial effusion. Interpretation Summary The left ventricular size, thickness and function are normal There is trace mitral regurgitation. No hemodynamically significant valvular aortic stenosis. No vegetations noted but this does not rule out endocarditis MD Tyler Holland 07/20/2018 03:46 PM
[2018-07-21 08:03] LABS: BASO % 0.4 % (0-2.0); EOS % 0.4 % (0-4.5); HEMATOCRIT 28.2 % (32.4-45.2); HEMOGLOBIN 9.1 GM/dl (10.7-15.3); MCH 30.3 pg (25.7-33.7); MCHC 32.3 g/dl (32.0-36.0); MEAN CELL VOLUME 93.9 fl (80-96); MEAN PLT VOLUME 8.3 fl (7.5-11.1); MONO % 8.8 % (3.8-10.2); NEUT % 68.4 % (42.8-82.8); PLATELET COUNT 327 K/MM3 (134-434); RDW 13.3 % (11.6-15.6); WHITE BLOOD COUNT 8.9 K/mm3 (4.0-10.8)
[2018-07-21] MEDS: FERROUS SO4 325 MG TABLET (FP) PO SCH (08:12)
[2018-07-21 08:28] LABS: ANION GAP 7 MMOL/L (8-16); BLOOD UREA NITROGEN 3 mg/dl (7-18); CALCIUM 8.2 mg/dl (8.4-10.2); CHLORIDE 111 mmol/L (98-107); CO2 20 mmol/L (22-28); CREATININE 0.4 mg/dl (0.6-1.3); GLUCOSE,RANDOM 85 mg/dl (74-106); MAGNESIUM 1.9 mg/dL (1.8-2.4); PHOSPHOROUS 4.2 mg/dl (2.5-4.6); POTASSIUM 3.9 mmol/L (3.5-5.1); SODIUM 138 mmol/L (136-145)
--- NOTE | 2018-07-21 08:31 | PN ---
Physical Exam: SUBJECTIVE: Patient seen and examined OBJECTIVE: Vital Signs Period Temp Pulse Resp BP Sys/Dillon Pulse Ox Last 24 Hr 98.2 F-102.4 F 72-103 16-18 103-115/59-70 97-100 GENERAL: The patient is awake, alert, and fully oriented, in no acute distress. HEAD: Normal with no signs of trauma. EYES: PERRL, extraocular movements intact, sclera anicteric, conjunctiva clear. No ptosis. ENT: Ears normal, nares patent, oropharynx clear without exudates, moist mucous membranes. NECK: Trachea midline, full range of motion, supple. LUNGS: Breath sounds equal, clear to auscultation bilaterally, no wheezes, no crackles, no accessory muscle use. HEART: Regular rate and rhythm, S1, S2 without murmur, rub or gallop. ABDOMEN: Soft, nontender, nondistended, normoactive bowel sounds, no guarding, no rebound, no hepatosplenomegaly, no masses. EXTREMITIES: 2+ pulses, warm, well-perfused, no edema. NEUROLOGICAL: Cranial nerves II through XII grossly intact. Normal speech, gait not observed. PSYCH: Normal mood, normal affect. SKIN: Warm, dry, normal turgor, no rashes or lesions noted Laboratory Results - last 24 hr 07/21/18 07/21/18 07:05 07:05 WBC 8.9 RBC 3.00 L Hgb 9.1 L Hct 28.2 L MCV 93.9 MCH 30.3 MCHC 32.3 RDW 13.3 Plt Count 327 MPV 8.3 Absolute Neuts (auto) 6.1 Neutrophils % 68.4 Lymphocytes % 22.0 Monocytes % 8.8 Eosinophils % 0.4 Basophils % 0.4 Sodium 138 Potassium 3.9 Chloride 111 H Carbon Dioxide 20 L Anion Gap 7 L BUN 3 L Creatinine 0.4 L Creat Clearance w eGFR > 60 Random Glucose 85 Calcium 8.2 L Phosphorus 4.2 D Magnesium 1.9 Active Medications Generic Name Dose Route Start Last Admin Trade Name Freq PRN Reason Stop Dose Admin Acetaminophen 650 mg 07/19/18 08:07 07/20/18 09:29 Tylenol - PO 650 mg Q4H PRN Administration FEVER Ferrous Sulfate 325 mg 07/19/18 08:00 07/21/18 08:12 Feosol - PO 325 mg BIDWM MORE Administration Heparin Sodium (Porcine) 5,000 unit 07/19/18 10:00 07/20/18 21:09 Heparin - SQ Not Given BID MORE Ceftriaxone Sodium 2 gm in 100 mls @ 200 mls/hr 07/19/18 10:00 07/20/18 09:28 Rocephin 2gm Ivpb (Pre-Docked) IVPB 200 mls/hr DAILY MORE Administration Protocol Lactobacillus Acidophilus 1 tab 07/19/18 10:00 07/20/18 09:28 Bacid - PO 1 tab DAILY MORE Administration Potassium Phos/Sodium Phos 1 packet 07/20/18 11:00 07/20/18 21:09 Phos-Nak Packet - PO 1 packet BID MORE Administration Senna 1 tab 07/19/18 10:00 07/20/18 21:08 Senna - PO 1 tab BID MORE Administration ASSESSMENT/PLAN:
[2018-07-21 09:24] VITALS: BP 107/72; PULSE 91; TEMP 98.8
[2018-07-21] MEDS: SENNOSIDES 8.6MG TABLET (FP) PO SCH (09:26)
[2018-07-21] MEDS: LACTOBACILLUS ACIDOPHILUS 1 TABLET PO SCH (09:26)
[2018-07-21] MEDS: NAPH,MB-DB/K PH,MBDB POWDER PACKET PO SCH (09:27)
[2018-07-21] MEDS: HEPARIN NA (PORCINE) 5,000 UNITS/ML 1ML VIAL SQ SCH (09:27)
[2018-07-21] MEDS: CEFTRIAXONE 2 GM/100 ML BAG IVPB SCH (09:27)
--- NOTE | 2018-07-21 09:47 | PN ---
Progress Note, Physician History of Present Illness: Temp overnight noted Feeling better No c/o R flank pain No dysuria/ hematuria Blood , urine c/s E coli Repeat BC (-) WBC WNL - Current Medication List Current Medications: Active Medications Acetaminophen (Tylenol -) 650 mg PO Q4H PRN PRN Reason: FEVER Last Admin: 07/20/18 09:29 Dose: 650 mg Ferrous Sulfate (Feosol -) 325 mg PO BIDWM [facility] Last Admin: 07/21/18 08:12 Dose: 325 mg Heparin Sodium (Porcine) (Heparin -) 5,000 unit SQ BID [facility] Last Admin: 07/21/18 09:27 Dose: Not Given Ceftriaxone Sodium (Rocephin 2gm Ivpb (Pre-Docked)) 2 gm in 100 mls @ 200 mls/ hr IVPB DAILY [facility]; Protocol Last Admin: 07/21/18 09:27 Dose: 200 mls/hr Lactobacillus Acidophilus (Bacid -) 1 tab PO DAILY [facility] Last Admin: 07/21/18 09:26 Dose: 1 tab Potassium Phos/Sodium Phos (Phos-Nak Packet -) 1 packet PO BID [facility] Last Admin: 07/21/18 09:27 Dose: 1 packet Senna (Senna -) 1 tab PO BID [facility] Last Admin: 07/21/18 09:26 Dose: 1 tab - Objective Vital Signs: Vital Signs Temperature 98.8 F 07/21/18 09:21 Pulse Rate 91 H 07/21/18 09:21 Respiratory Rate 17 07/21/18 09:21 Blood Pressure 107/72 07/21/18 09:21 O2 Sat by Pulse Oximetry (%) 98 07/21/18 06:00 Constitutional: Yes: No Distress Eyes: Yes: Conjunctiva Clear Cardiovascular: Yes: Regular Rate and Rhythm, S1, S2 Respiratory: Yes: CTA Bilaterally Gastrointestinal: Yes: Normal Bowel Sounds, Soft. No: Tenderness Genitourinary: No: CVA Tenderness - Left, CVA Tenderness - Right Edema: No Labs: CBC, BMP 07/21/18 07:05 07/21/18 07:05 Assessment/Plan Acute R pyelonephritis E coli clinically improved WBC WNL Repeat BC (-) Substitute levaquin 750mg po qd additional 10d Pt instructed not to breast feed until she completes course of antibiotics
--- NOTE | 2018-07-21 11:24 | DS ---
Physical Exam: SUBJECTIVE: Patient seen and examined, Patient is sitting in bed pumping breast milk, Reports feeling well denies any flank pain or tactile fevers patient denies any chest pain or shortness of breath. Mother at bedside OBJECTIVE:This is a 38 year old female who is 8 days who presented to the ED with fever and right flank pain x 1 day. Pt is 8 days . She had a allison catheter placed during delivery. She was diagnosed with UTI by [facility] in [facility] and started on bactrim. She initially felt better , but she received a TC that it was resistant to bactrim and was prescribed macrobid. ER course was notable for: (1) WBC 21.9, lactic acid 2.7, temp 100.1 (2) sodium 131 (3) u/a c/w UTI Vital Signs Period Temp Pulse Resp BP Sys/Dillon Pulse Ox Last 24 Hr 98.2 F-102.4 F 72-103 16-18 103-115/59-72 97-100 PHYSICAL EXAM GENERAL: The patient is awake, alert, and fully oriented, in no acute distress. HEAD: Normal with no signs of trauma. EYES: PERRL, extraocular movements intact, sclera anicteric, conjunctiva clear. ENT: Ears normal, nares patent, oropharynx clear without exudates, moist mucous membranes. NECK: Trachea midline, full range of motion, supple. LUNGS: Breath sounds equal, clear to auscultation bilaterally, no wheezes, no crackles, no accessory muscle use. HEART: Regular rate and rhythm, S1, S2 without murmur, rub or gallop. ABDOMEN: Soft, nontender, nondistended, normoactive bowel sounds, no guarding, no rebound, no hepatosplenomegaly, no masses. EXTREMITIES: 2+ pulses, warm, well-perfused, no edema. NEUROLOGICAL: Cranial nerves II through XII grossly intact. Normal speech, gait not observed. PSYCH: Normal mood, normal affect. SKIN: Warm, dry, normal turgor, no rashes or lesions noted. LABS Laboratory Results - last 24 hr 07/21/18 07/21/18 07:05 07:05 WBC 8.9 RBC 3.00 L Hgb 9.1 L Hct 28.2 L MCV 93.9 MCH 30.3 MCHC 32.3 RDW 13.3 Plt Count 327 MPV 8.3 Absolute Neuts (auto) 6.1 Neutrophils % 68.4 Lymphocytes % 22.0 Monocytes % 8.8 Eosinophils % 0.4 Basophils % 0.4 Sodium 138 Potassium 3.9 Chloride 111 H Carbon Dioxide 20 L Anion Gap 7 L BUN 3 L Creatinine 0.4 L Creat Clearance w eGFR > 60 Random Glucose 85 Calcium 8.2 L Phosphorus 4.2 D Magnesium 1.9 Microbiology 07/18/18 22:50 Urine - Urine Clean Catch Urine Culture - Final Escherichia Coli 07/18/18 22:50 Blood - Peripheral Venous Blood Culture - Final Escherichia Coli 07/19/18 12:30 Blood - Peripheral Venous Blood Culture - Preliminary NO GROWTH OBTAINED AFTER 24 HOURS, INCUBATION TO CONTINUE FOR 4 DAYS. 07/19/18 13:00 Blood - Peripheral Venous Blood Culture - Preliminary NO GROWTH OBTAINED AFTER 24 HOURS, INCUBATION TO CONTINUE FOR 4 DAYS. 07/18/18 22:50 Blood - Peripheral Venous Blood Culture - Preliminary Lactose Fermenting Neg Bacilli IMAGING CT of abd/pelvis: no evidence of urinary tract calculi or obstructive uropathy mild right perinephric stranding, fibroid uterus HOSPITAL COURSE: Patient was admitted for emergency department to the medical surgical floor for sepsis secondary to pyelonephritis and Escherichia coli bacteremia. Urine and blood culture notable as above. Patient was treated with Rocephin 2 g IV daily for 3 days. Repeat blood cultures negative to date. No leukocytosis noted. Infectious disease physician Dr. Paula was consulted and followed patient admission. Patient was noted to have normocytic anemia during admission , patient is status post vaginal delivery and hemoglobin likely secondary to dilution after administering IV fluids. Repeat hemoglobin normal as above patient was started on iron supplementation. Plan - Discharge patient home with Levaquin 750 mg daily for the next 10 days. - strict follow-up with primary care physician within one week. - Return precautions reviewed with patient's patient verbalizes understanding all questions answered Date of Admission:07/18/18 Date of Discharge: 07/21/18 Minutes to complete discharge: 45 Discharge Summary Reason For Visit: PYELONEPHRITIS Current Active Problems Pyelonephritis (Acute) Condition: Stable - Instructions - Home Medications Comprehensive Discharge Medication List: Ambulatory Orders Ibuprofen 600 mg PO QID PRN 07/18/18 Nitrofurantoin Macrocrystal [Macrodantin] 100 mg PO BID 07/18/18 This patient is new to me today: No Emergency Visit: Yes ED Registration Date: 07/18/18 Care time: The patient presented to the Emergency Department on the above date and was hospitalized for further evaluation of their emergent condition. Critical Care patient: No - Discharge Referral Referred to [facility] Med P.C.: No
== END 2018-07-21 12:02 | disposition home or self-care (01) | DRG 776 ==
LOC: FER 22:25 → FM/S 23:57 → UNDOADMIN 07-19 00:17
PROVIDERS: ADMIT Internal Medicine; ATTEND Nurse Practitioner Family
DX: O86.29 Other urinary tract infection following delivery (principal); B96.20 Unspecified Escherichia coli [E. coli] as the cause of diseases classified elsewhere; D35.2 Benign neoplasm of pituitary gland; O90.81 Anemia of the puerperium
CPT/HCPCS: 36415; 74176-TC; 80048; 80053; 81003; 81015; 82803; 83605; 83735; 84100; 84702; 84703; 85025; 87040; 87086; 87186; 93306-TC; 99282-25; J0131; J1644; J7030